=== PATIENT | female | born 1950 | race Caucasian/White ===

== ENCOUNTER → 2024-04-14 11:44 | Outpatient (REF) | payer MEDICARE, SELFPAY | LOC: HWWDC 11:44 | PROVIDERS: ATTENDING PHYSICIAN Family Medicine | DX: Z12.31 Encounter for screening mammogram for malignant neoplasm of breast (principal) | CPT/HCPCS: 77063; 77067 ==

== ENCOUNTER → 2024-04-23 09:07 | Outpatient (REF) | payer MEDICARE, SELFPAY | LOC: WDC 09:07 | PROVIDERS: ATTENDING PHYSICIAN Family Medicine | DX: R92.8 Other abnormal and inconclusive findings on diagnostic imaging of breast (principal) | CPT/HCPCS: 76642 ==

== ENCOUNTER → 2024-04-28 11:04 | Outpatient (REF) | payer MEDICARE, SELFPAY ==
--- NOTE | 2024-04-28 15:01 | OID.BR.INTR ---
DAVIDED Breast Navigator - Initial
- -
Date of Contact: 04/28/24
Met with patient. Patient given written information on navigator services and support services available at [facility]. Will follow up as needed per protocol.
== END ==
LOC: WDC 11:04
PROVIDERS: ATTENDING PHYSICIAN Family Medicine
DX: N63.12 Unspecified lump in the right breast, upper inner quadrant (principal)
CPT/HCPCS: 88305; 19083; 77065; 88341; 88360; A4648

== ENCOUNTER → 2024-05-19 14:31 | Outpatient (REF) | payer MEDICARE, SELFPAY | LOC: WDC 14:31 | PROVIDERS: ATTENDING PHYSICIAN Surgery | DX: C50.411 Malignant neoplasm of upper-outer quadrant of right female breast (principal); N63.12 Unspecified lump in the right breast, upper inner quadrant | CPT/HCPCS: 19285; 38792; 76942; 77065; A4648; A9541 ==

== ENCOUNTER 2024-05-20 06:16 | Day surgery (SDC) | payer MEDICARE, SELFPAY ==
[2024-05-15 12:19] VITALS: BMI 44.5
[2024-05-20] VITALS (7 sets, daily range): BP systolic 129–164; BP diastolic 51–78; BMI 44.3
[2024-05-20 07:21] LABS: Glucose - Point of Care 209 mg/dl (70-99)
[2024-05-20] MEDS: TYLENOL 1000 MG PO (07:34)
[2024-05-20] MEDS: NORMOSOL-R 1000 IV (07:34)
--- NOTE | 2024-05-20 09:05 | W.IMMPOSTOP ---
Surgical Immed Post Op Note
-
Primary Surgeon: Elena
Assisting Surgeon: None
Pre-op Diagnosis: Right breast carcinoma
Post-op Diagnosis: Same
Procedure Performed: Right localized lumpectomy, sentinel lymph node mapping and biopsy
Anesthesia Type: LMA
Specimen / Cultures: Lumpectomy, margins, sentinel nodes
Estimated Blood Loss: 6cc
Complications: None
Operative Findings: Neg nodes on frozen, clip and nodule in speciman
[place] Node Bx Breast Cancer
[place] Node Bx Breast Cancer
Operation performed with curative intent: Yes
Tracer(s) to ID [place] Nodes in Non-Neoadjuvant setting: Radioactive Tracer
Tracer(s) to ID Sentinal Nodes in the Neoadjuvant Setting: N/A
All nodes at end of dye-filled Lymphatic Channel removed: N/A
All Significantly Radioactive Nodes were removed: Yes
All Palpably Suspicious Nodes were Removed: Yes
Bx Proven Pos Nodes Marked Prior to Chemo ID'd & Removed: N/A
[2024-05-20 09:32] LABS: Glucose - Point of Care 238 mg/dl (70-99)
[2024-05-20] MEDS: NOVOLOG vial 2 UNITS SC ×2 (09:36→10:52)
[2024-05-20] MEDS: ULTRAM 50 MG PO (10:49)
[2024-05-20 10:56] LABS: Glucose - Point of Care 242 mg/dl (70-99)
== END 2024-05-20 11:50 | disposition home or self-care (01) ==
LOC: SDS 06:16
PROVIDERS: ATTENDING PHYSICIAN Surgery
DX: C50.411 Malignant neoplasm of upper-outer quadrant of right female breast (principal); N60.21 Fibroadenosis of right breast; Z17.0 Estrogen receptor positive status [ER+]
CPT/HCPCS: 38525; 19301; 88305; 88307; 88332; 76098; 82962; 88331; 88341; 88342; 88360; A4648

== ENCOUNTER 2024-06-24 11:25 | Outpatient (RCR) | payer MEDICARE, SELFPAY | END 2024-06-24 23:59 | disposition home or self-care (01) | LOC: RPT 11:25 | PROVIDERS: ATTENDING PHYSICIAN Radiology Radiation Oncology; FAMILY PHYSICIAN Family Medicine | DX: C50.111 Malignant neoplasm of central portion of right female breast (principal); Z17.0 Estrogen receptor positive status [ER+]; Z73.6 Limitation of activities due to disability; L90.5 Scar conditions and fibrosis of skin; M25.511 Pain in right shoulder; R26.81 Unsteadiness on feet; M62.81 Muscle weakness (generalized); R26.2 Difficulty in walking, not elsewhere classified | CPT/HCPCS: 97110; 97140; 97163; 97535 ==

== ENCOUNTER 2024-07-02 15:07 | Outpatient (RCR) | payer MEDICARE, SELFPAY | END 2024-07-02 23:59 | disposition home or self-care (01) | LOC: RPT 15:07 | PROVIDERS: ATTENDING PHYSICIAN Radiology Radiation Oncology; FAMILY PHYSICIAN Family Medicine | DX: M25.511 Pain in right shoulder (principal); M25.611 Stiffness of right shoulder, not elsewhere classified; L90.5 Scar conditions and fibrosis of skin; M62.81 Muscle weakness (generalized); Z73.6 Limitation of activities due to disability; C50.111 Malignant neoplasm of central portion of right female breast; Z17.0 Estrogen receptor positive status [ER+] | CPT/HCPCS: 97110; 97140; 97535 ==

== ENCOUNTER → 2024-07-23 14:04 | Outpatient (REF) | payer MEDICARE, SELFPAY | LOC: HWRAD 14:04 | PROVIDERS: ATTENDING PHYSICIAN Internal Medicine Hematology & Oncology; FAMILY PHYSICIAN Family Medicine | DX: C50.411 Malignant neoplasm of upper-outer quadrant of right female breast (principal); Z78.0 Asymptomatic menopausal state | CPT/HCPCS: 77080 ==

== ENCOUNTER → 2024-07-25 11:15 | Outpatient (REF) | payer MEDICARE, SELFPAY ==
[2024-07-25 16:32] LABS: Blood Urea Nitrogen 27 mg/dl (7-17); Calcium 9.7 mg/dl (8.4-10.2); Carbon Dioxide 27 mmol/L (22-30); Chloride 100 mmol/L (98-107); Glucose 239 mg/dl (70-99); Potassium 4.6 mmol/L (3.5-5.1); Sodium 139 mmol/L (135-145); eGFR > 60.00
== END ==
LOC: HWLAB 11:15
PROVIDERS: ATTENDING PHYSICIAN Internal Medicine Cardiovascular Disease; FAMILY PHYSICIAN Family Medicine
DX: I10 Essential (primary) hypertension (principal)
CPT/HCPCS: 36415; 80048

== ENCOUNTER 2024-11-10 15:15 | Outpatient (RCR) | payer MEDICARE, SELFPAY | END 2024-11-10 23:59 | disposition home or self-care (01) | LOC: RPT 15:15 | PROVIDERS: ATTENDING PHYSICIAN Orthopaedic Surgery Hand Surgery; FAMILY PHYSICIAN Family Medicine | DX: S46.211D Strain of muscle, fascia and tendon of other parts of biceps, right arm, subsequent encounter (principal); Z73.6 Limitation of activities due to disability; M62.81 Muscle weakness (generalized); C50.111 Malignant neoplasm of central portion of right female breast; R26.89 Other abnormalities of gait and mobility | CPT/HCPCS: 97010; 97110; 97162 ==

== ENCOUNTER 2025-02-27 18:47 | Emergency (ER) | payer MEDICARE, SELFPAY ==
[2025-02-27 18:52] VITALS: BP 192/90
--- NOTE | 2025-02-27 22:23 | ED.GENMED ---
History of Present Illness
General
Chief Complaint: Fall
Source: patient
Exam Limitations: none
Time Seen by Provider: 02/27/25 22:18
History of Present Illness
History of Present Illness:
See MDM
Past History
Past History
ED Past Medical History: CAD, HTN and Hypercholesterolemia
ED Past Surgical History: Appendectomy, Gynecological and Tonsilectomy
Social History
Tobacco: Non-smoker
Alcohol: None
Phy Exam
Physical Exam
Physical Exam:
See MDM
Course
Orders/Labs/Results
Orders:
Orders
02/27/25 18:57
CR Chest - 2 Views Urgent
Comment:
Reason For Exam: fall
Vital Signs
Initial and Last Documented VS:
Initial Vital Signs
Temp Pulse Resp BP Pulse Ox
98.1 F 82 18 192/90 98
02/27/25 18:52 02/27/25 18:52 02/27/25 18:52 02/27/25 18:52 02/27/25 18:52
Last Documented Vital Signs
Temp Pulse Resp BP Pulse Ox
98.1 F 82 18 192/90 98
02/27/25 18:52 02/27/25 18:52 02/27/25 18:52 02/27/25 18:52 02/27/25 18:52
MDM/Problems Addressed
Differential Diagnosis Includes:
HPI and MDM Narrative:
75-year-old female presenting with chest discomfort after a fall. Patient tripped as she was coming out of the store. Her hands were full and she fell forward landing on her chest. She did scrape her nose and her mouth against the floor as well.
She denies any significant head injury or any headache. Chest x-ray was done prior to my assessment showing no evidence of pneumothorax or fracture. Lungs are clear on my exam. Patient is in no acute distress. She denies neck pain or hip pain.
Patient ambulating. She does have a fractured tooth. However, it appears that this is a fracture of a veneer that was placed prior. He does have a small abrasion to the inside of her right nare but no septal hematoma. No clinical signs of
intracranial hemorrhage. We did discuss obtaining CT head but patient is unconcerned about skull fracture or intracranial hemorrhage. I do agree. We discussed return precautions patient declined pain medicine
Physical exam
General: Well appearing and non-toxic
HEENT: protecting airway. Fractured upper right incisor. No palpable jaw fracture
Neck: Nontender, supple
CV: No evidence of cyanosis. Regular rate and rhythm
Chest: Tenderness to left anterior chest without crepitus
Resp: No accessory muscle use. Lungs clear
Abd: Non-distended
Extremities: No deformities
Neuro: alert
Psych: Normal affect
Skin: Intact
Problems Addressed including Acute and Chronic Conditions affecting care:
1. Chest contusion
Acuity: acute
Prognosis: stable
Details: X-ray negative for pneumothorax or fracture. We discussed the possibility of occult fracture not picked up on x-ray. We did appropriate pain medicine and return precautions
2. Fractured tooth
Acuity: acute
Prognosis: stable
Details: Discussed outpatient follow-up with dentist
3. Head injury
Acuity: acute
Prognosis: stable
Details: Small abrasion to right nare but no septal hematoma. Patient declined CT head
Differential Diagnosis (but not limited to): Nasal fracture, tooth fracture, jaw contusion, rib fracture, chest contusion
Testing considered: CT head
Drug therapy (if applicable): OTC meds, please see d/c instruction regarding Rx drugs
Amount and/or Complexity of Data Reviewed
Clinical info obtained from: Patient
External data reviewed: N/A
Labs I independently reviewed (but not limited to): N/A
Radiology: X-ray independently reviewed: Chest x-ray without evidence of pneumothorax or obvious rib fracture
Pulse Ox: not hypoxic
EKG independently reviewed: N/A
Traffic Line Painter: N/A
Critical Care: N/A
Risk of Complication:
Social Determinants of health: Good social support
Discussed with other providers: N/A
Escalation of Care includes Admit/Obs: After being observed in the Emergency Department, pt stable for discharge.
Occasional wrong word or 'sound a like' substitutions may have occurred due to the inherent limitations of voice recognition software. Read the chart carefully and recognize, using context, where substitutions have occurred.
*Critical Care Note
Total Time (30-74mins, 75-104mins- exclusive of procedures): Not Applicable
ED Attending Note
-
Portions of this chart may have been created with voice recognition software.� Occasional wrong word or��sound alike� substitutions may have occurred due to the inherent limitations of voice recognition software.
Discharge Plan
Departure
Patient Disposition: Home (Routine Discharge)
Date of Disposition: 02/27/25
Time of Disposition: 22:24
Patient with high blood pressure during this ER visit?: Yes
Discharge Problem:
Chest wall contusion, Fracture of tooth
Instructions: Contusion (DC), BLOOD PRESSURE
Prescriptions:
No Action
carvedilol 25 MG tablet
25 mg PO BID
ascorbic acid (vitamin C) [Vitamin C] 1,000 MG tablet
1,000 mg PO DAILY
cyanocobalamin (vitamin B-12) 1,000 MCG tablet
1,000 mcg PO DAILY
aspirin [Adult Aspirin Regimen] 81 MG tablet,delayed release (DR/EC)
81 mg PO HS
meclizine 25 MG tablet
25 mg PO PRN PRN (Reason: Vertigo)
benazepril 40 MG tablet
40 mg PO DAILY
olmesartan 40 MG tablet
40 mg PO DAILY
coenzyme Q10 [Co Q-10] 200 MG capsule
200 mg PO DAILY
Centrum Silver Women 1 EACH tablet
1 ea PO DAILY
metformin 1,000 MG tablet
1,000 mg PO BID Qty: 0 0RF
atorvastatin 20 mg Tablet
20 mg PO HS
chlorthalidone 25 mg Tablet
25 mg PO DAILY
amlodipine 5 mg Tablet
5 mg PO DAILY
acetaminophen 650 mg Tablet Extended Release
1,300 mg PO DAILY
triamcinolone acetonide 0.1 % Ointment
1 applic TOPICAL PRN PRN (Reason: Rash)
glimepiride 4 mg Tablet
4 mg PO DAILY
clobetasol 0.05 % Ointment
1 applic TOPICAL PRN PRN (Reason: Rash)
ezetimibe [Zetia] 10 mg Tablet
10 mg PO DAILY
duloxetine 30 mg Capsule,Delayed Release(Dr/Ec)
30 mg PO DAILY
solifenacin 10 mg Tablet
10 mg PO DAILY
ketoconazole 2 % Gel
1 applic TOPICAL DAILY
mirabegron [Myrbetriq] 50 mg Tablet Extended Release 24 Hr
50 mg PO DAILY
dapagliflozin propanediol [Farxiga] 10 mg Tablet
10 mg PO DAILY
Tumeric
1 cap PO DAILY
Activity Restrictions/Additional Instructions:
Please return for any worsening symptoms.
You may return at any time if you have further concerns.
Please follow up with your doctor at the first available appointment, preferably this week.
Please make an appointment with the dentist to evaluate your fractured tooth.
Thank you for choosing [facility].
Interventions
Interventions:
*Risk Screen - Suicide Last Done: 02/27/25 18:52
*General Assessment Last Done: 02/27/25 18:52
*Neglect/Abuse Screening Last Done: 02/27/25 18:52
*ED COVID-19 Vaccine History Last Done: 02/27/25 18:52
Discharge Date and Time
Print Language: WOLOF
[2025-02-27 22:26] VITALS: BP 132/61; BMI 44.1
--- NOTE | 2025-02-27 22:28 | EDRN ---
Pt was walking through double doors with iced tea in each hand. Pt tripped on mat and fell through second set double doors landing prone. Pt complains of pain with deep breathing in her chest, bruise on L breast, missing R lateral incisor tooth
(veneer). Pt denies neck/back pain, dizziness, sob, headache, n/v, loc. No trouble walking. Pt declines pain medication in ED stating she will use tylenol arthritis at home which she likes to use for pain.
== END 2025-02-27 22:37 | disposition home or self-care (01) ==
LOC: EMR 18:47
PROVIDERS: EMERGENCY PHYSICIAN Student in an Organized Health Care Education/Training Program; FAMILY PHYSICIAN Family Medicine
DX: S02.5XXA Fracture of tooth (traumatic), initial encounter for closed fracture (principal); S20.219A Contusion of unspecified front wall of thorax, initial encounter; W01.0XXA Fall on same level from slipping, tripping and stumbling without subsequent striking against object, initial encounter; I10 Essential (primary) hypertension
CPT/HCPCS: 99283; 71046

== ENCOUNTER → 2025-03-02 10:26 | Outpatient (REF) | payer MEDICARE, SELFPAY | LOC: RAD 10:26 | PROVIDERS: ATTENDING PHYSICIAN Surgery; FAMILY PHYSICIAN Family Medicine | DX: C50.411 Malignant neoplasm of upper-outer quadrant of right female breast (principal) | CPT/HCPCS: 71270; 74178; 78306; A9503; Q9967 ==

== ENCOUNTER → 2025-04-16 15:36 | Outpatient (REF) | payer MEDICARE, SELFPAY | LOC: WDC 15:36 | PROVIDERS: ATTENDING PHYSICIAN Family Medicine Geriatric Medicine; FAMILY PHYSICIAN Family Medicine | DX: Z12.31 Encounter for screening mammogram for malignant neoplasm of breast (principal); C50.411 Malignant neoplasm of upper-outer quadrant of right female breast; Z85.3 Personal history of malignant neoplasm of breast | CPT/HCPCS: 77063; 77067 ==

== ENCOUNTER 2025-11-06 06:10 | Day surgery (SDC) | payer MEDICARE, SELFPAY ==
[2025-11-06 07:14] VITALS: BP 147/69
[2025-11-06 07:19] VITALS: BMI 41.9
[2025-11-06 07:25] LABS: Glucose - Point of Care 161 mg/dl (70-99)
== END 2025-11-06 08:43 | disposition home or self-care (01) ==
LOC: SDS 06:10
PROVIDERS: ATTENDING PHYSICIAN Internal Medicine Gastroenterology
DX: Z12.11 Encounter for screening for malignant neoplasm of colon (principal); D12.6 Benign neoplasm of colon, unspecified; K57.30 Diverticulosis of large intestine without perforation or abscess without bleeding; K64.8 Other hemorrhoids; R19.5 Other fecal abnormalities; K29.80 Duodenitis without bleeding; K29.50 Unspecified chronic gastritis without bleeding; K21.9 Gastro-esophageal reflux disease without esophagitis
CPT/HCPCS: 45385; 45381; 43239; 82962; 88305; 88342